=== PATIENT | male | born 1950 | race Caucasian/White ===

== ENCOUNTER 2018-09-08 07:03 | Day surgery (SDC) | payer MEDICARE, OTHER ==
[~2018-09-08] VITALS: Ht 177.8 cm; Wt 175.0 kg
[2018-09-08] VITALS (12 sets, daily range): BP systolic 128–150; BP diastolic 64–82; PULSE 52–62; TEMP 98.2
[~2018-09-08 07:03] MED LIST: ADVIL 200MG TA200 MG PO; BETAPACE 80MG80 MG PO; CEPHALEXIN500 M1 PO; COUMADIN 5MG5 MG/TAB PO; FISH OIL CONC1000 MG PO; FLOMAX 0.40.4 MG/CAP PO; LORTAB 5/500 501 TAB; LORTAB 5/500 501 TAB PO; NO HOME MEDICATIONS; PRILOSEC10 MG PO; SAW PALMETTO500 MG PO; ST. JOSEPH81 M2 PO
[2018-09-08 07:37] LABS: HEMATOCRIT 45.6 % (42.0-52.0); HEMOGLOBIN 15.4 g/dl (13.5-18.0); MEAN CELL VOLUME 91 fl (80.0-100.0); MEAN CORPUSCULAR HEMOGLOBIN 31 pg (27.0-31.0); MEAN CORPUSCULAR HGB CONC 34 g/dl (33.0-37.0); MEAN PLATELET VOLUME 9.7 fl (7.4-10.4); PLATELET COUNT 212 K/mm3 (130-400); RED BLOOD COUNT 5.04 M/mm3 (4.20-5.60); REDCELL DISTRIBUTION WIDTH-CV 13.3 % (11.5-14.5)
[2018-09-08] MEDS ORDERED: LIPITOR 80MG80 MG PO (07:42)
[2018-09-08] MEDS ORDERED: HCTZ 25MG TAB25 MG PO (07:43)
[2018-09-08 07:45] LABS: INR 1.1 (0.8-3.0); PROTHROMBIN TIME 12.1 SECONDS (9.7-12.8)
[2018-09-08] MEDS ORDERED: PLAVIX 75MG TAB75 MG PO (07:45)
[2018-09-08 07:47] LABS: CALCIUM 9.2 mg/dL (8.4-10.2); CREATININE, serum 1.18 mg/dL (0.66-1.25); POTASSIUM 4.1 mmol/L (3.4-5.0)
== END 2018-09-08 14:30 | disposition home or self-care (01) ==
LOC: COL.CAR 07:03
PROVIDERS: Internal Medicine Interventional Cardiology
DX: R07.89 Other chest pain (principal); R94.39 Abnormal result of other cardiovascular function study; E78.2 Mixed hyperlipidemia; I71.4 Abdominal aortic aneurysm, without rupture; I10 Essential (primary) hypertension; Z90.49 Acquired absence of other specified parts of digestive tract; Z98.52 Vasectomy status
CPT/HCPCS: C1760; C1894; J1644; J2250; J3010; Q9967

== ENCOUNTER → 2021-09-25 | Outpatient (CLI) | payer MEDICARE, OTHER ==
[~2021-09-25] VITALS: Ht 177.8 cm; Wt 130.7 kg
[~2021-09-25] MED LIST changes: +HCTZ 25MG TAB25 MG PO; +LIPITOR 80MG80 MG PO; +PLAVIX 75MG TAB75 MG PO; +PRINIVIL20 MG PO
[2021-09-25 06:42] VITALS: BP 141/82; PULSE 59; TEMP 97.5
[2021-09-25 08:05] VITALS: BP 148/95; PULSE 66
== END ==
LOC: COL.RAD 06:26
DX: M19.011 Primary osteoarthritis, right shoulder (principal)
CPT/HCPCS: J2250; J2704; J3010; J7120

== ENCOUNTER → 2022-03-11 | Outpatient (CLI) | payer MEDICARE, OTHER | LOC: COL.RAD 13:29 | DX: S79.811A Other specified injuries of right hip, initial encounter (principal); X58.XXXA Exposure to other specified factors, initial encounter | CPT/HCPCS: J3301; Q9967 ==

== ENCOUNTER → 2023-09-26 | Outpatient (CLI) | payer MEDICARE, OTHER | LOC: COL.RAD 08:43 | DX: M25.551 Pain in right hip (principal) | CPT/HCPCS: J0665; J3301; Q9967 ==